=== PATIENT | male | born 1985 | race Caucasian/White ===

== ENCOUNTER 2022-03-07 20:09 | Emergency (ER) | payer BC ==
[~2022-03-07] VITALS: Ht 177.8 cm; Wt 61.8 kg
[~2022-03-07 20:09] MED LIST: BARIUM SULFATE 340 ML SUSP.RECON***PROCEDURE AREA ONLY**DONT ENTER PO ONE
[2022-03-07] MEDS ORDERED: normal saline 1000ML IV soln IVB ONE (21:00)
[2022-03-07 21:43] LABS: BASOPHILS % (AUTO) 0.5 % (0-1); EOSINOPHILS # (AUTO) 0.1 X10'3 (0-0.9); EOSINOPHILS % (AUTO) 0.6 % (0-6); HEMATOCRIT 40.1 % (42.0-52.0); HEMOGLOBIN 13.9 g/dl (14.0-17.9); LYMPHOCYTES % (AUTO) 33.3 % (21-51); MEAN CORPUSCULAR HEMOGLOBIN 31.8 PG (27.0-31.0); MEAN CORPUSCULAR HGB CONC 34.7 g/dL (33.0-36.5); MEAN CORPUSCULAR VOLUME 91.6 FL (78-98); MONOCYTES # (AUTO) 0.6 X10'3 (0-0.9); MONOCYTES % (AUTO) 6.1 % (2-12); NEUTROPHILS # (AUTO) 5.4 X10'3 (1.8-7.7); NEUTROPHILS % (AUTO) 59.5 % (42-75); PLATELET COUNT 258 X10'3 (140-440); RED BLOOD COUNT 4.38 X10'6 (4.70-6.10); WHITE BLOOD COUNT 9.1 X10'3 (4.5-11.0)
[2022-03-07 21:51] LABS: ALANINE AMINOTRANSFERASE 18 U/L (12-78); ALBUMIN 4.1 G/DL (3.4-5.0); ALBUMIN/GLOBULIN RATIO 1.1 (1.1-1.5); ALKALINE PHOSPHATASE 66 IU/L (46-116); ANION GAP 9 (8-16); ASPARTATE AMINO TRANSFERASE 17 U/L (10-37); BILIRUBIN,TOTAL 0.8 MG/DL (0.1-1.0); BLOOD UREA NITROGEN 20 MG/DL (7-18); CALCIUM 9.1 MG/DL (8.5-10.1); CHLORIDE 103 MMOL/L (99-107); CREATININE 0.77 MG/DL (0.60-1.10); GLUCOSE 91 MG/DL (70-104); POTASSIUM 4.4 MMOL/L (3.5-5.1); SODIUM 140 MMOL/L (135-145); TOTAL CARBON DIOXIDE 27.6 MMOL/L (24-32); eGFR > 90 ML/MIN
[2022-03-07 21:55] LABS: LIPASE 309 U/L (73-393)
[2022-03-08] MEDS ORDERED: fentaNYL/PF 50MCG/1 ML 2ML syringe ONE (05:28)
[2022-03-08] MEDS ORDERED: MIDAZolam 1 MG/ML 5ML VIAL ONE (05:29)
[2022-03-08] MEDS ORDERED: LIDOcaine Viscous 15ml cup ONE (05:29)
[2022-03-08 06:00] VITALS: BP 118/75
[2022-03-08 07:02] VITALS: BP 88/51
[2022-03-08 07:12] VITALS: BP 90/49
[2022-03-08 07:22] VITALS: BP 89/59
[2022-03-08 07:32] VITALS: BP 84/44
--- NOTE | 2022-03-08 07:42 | NUR ---
pt came back from the GI lab,- GI RN at bedside,reports pt will have Barium Swallow today at 0830, pt is to keep head elevated and NPO-pt aware.
--- NOTE | 2022-03-08 08:58 | NUR ---
pt back from barium swallow
[2022-03-08 10:00] VITALS: BP 104/74
== END 2022-03-08 10:01 | disposition home or self-care (01) ==
LOC: ER 20:10
DX: K22.0 Achalasia of cardia (principal)
CPT/HCPCS: 36415; 43239; 74220; 80053; 83690; 84484; 85025; 99152; 99285; J2250; J3010; J7030; Z7512; A4620